=== PATIENT | male | born 1965 | race Caucasian/White ===

== ENCOUNTER 2017-11-26 00:18 | Emergency (ER) | payer SELFPAY ==
[2017-11-26] MEDS ORDERED: NS(*) 0.9% 1000 ML BAG 1,000 ML IV ONE (00:31)
--- NOTE | 2017-11-26 00:33 | ER Report ---
History and Physical Time Seen By MD: 00:23 HPI/ROS CHIEF COMPLAINT: chest pain HISTORY OF PRESENT ILLNESS: This is a 52 year old male. He is having chest pain. Started about 20 minutes ago. Left central chest area without radiation. On a trip to the [facility] from [place]. Trouble started for him when he started up into [place] from [place]. Does feel a little short of breath. No nausea or sweats. He has no history of chest pain or heart problems. No history of blood clots in legs or lungs. No headache or vision changes. No dizziness. Allergies: Coded Allergies: No Known Drug Allergies (Unverified , 11/26/17) Home Meds No Active Prescriptions or Reported Meds Reviewed Nurses Notes: Yes Constitutional Vital Sign - Last 24 Hours 11/26/17 11/26/17 11/26/17 11/26/17 00:27 00:30 00:51 01:00 Temp 98.6 Pulse 98 101 93 Resp 16 B/P (MAP) 188/106 173/104 (127) 148/89 (108) Pulse Ox 94 90 96 O2 Delivery Room Air Nasal Cannula O2 Flow Rate 2.0 2 11/26/17 11/26/17 11/26/17 11/26/17 01:30 02:00 02:30 03:00 Pulse 92 93 97 88 B/P (MAP) 147/84 (105) 146/92 (110) 141/113 (122) 150/100 (117) Pulse Ox 96 96 97 97 O2 Delivery Nasal Cannula Nasal Cannula Nasal Cannula Nasal Cannula O2 Flow Rate 2 2 2 2 11/26/17 11/26/17 03:30 03:45 Pulse 90 94 B/P (MAP) 154/94 (114) 147/94 (111) Pulse Ox 96 97 O2 Delivery Nasal Cannula Room Air O2 Flow Rate 2 2 Physical Exam General Appearance: The patient is alert. No acute distress. Non-toxic in appearance. Eyes: Pupils are equal, round. Reactive to light. No pallor, injection or icterus. Extraocular movements are intact. ENT: Mucous membranes are moist. Normal oral mucosa. Posterior oropharynx is normal. Neck: Supple and non tender. Respiratory: Lungs are clear to auscultation. Cardiovascular: Regular rate and rhythm. No murmurs, gallops or rubs. Normal capillary refill. No edema. Gastrointestinal: Abdomen is soft and non tender. Nondistended. Normal active bowel sounds. Neurological: Alert and oriented x3. Cranial nerves II through XII show no acute deficits on my exam. No focal neurologic deficits in the extremities. Skin: Warm and dry. No rashes. Musculoskeletal: Extremities are nontender. No tenderness in palpation of the cervical, thoracic and lumbar spine. DIFFERENTIAL DIAGNOSIS: After history and physical exam, differential diagnosis was considered for chest pain including but not limited to myocardial ischemia, pericarditis pulmonary embolus, chest wall pain, pleural inflammation and pulmonary infectious causes. Medical Decision Making Data Points Result Diagram: 11/26/17 0046 11/26/17 0046 Laboratory Hematology Test 11/26/17 00:46 11/26/17 03:13 Red Blood Count 5.74 M/uL (4.00-5.60) Mean Corpuscular Volume 88.2 fL (80.0-96.0) Mean Corpuscular Hemoglobin 30.7 pg (26.0-33.0) Mean Corpuscular Hemoglobin Concent 34.8 g/dL (32.0-36.0) Red Cell Distribution Width 13.7 % (11.5-14.5) Mean Platelet Volume 8.0 fL (7.2-11.1) Neutrophils (%) (Auto) 61.6 % (39.4-72.5) Lymphocytes (%) (Auto) 25.1 % (17.6-49.6) Monocytes (%) (Auto) 8.5 % (4.1-12.4) Eosinophils (%) (Auto) 4.3 % (0.4-6.7) Basophils (%) (Auto) 0.5 % (0.3-1.4) Nucleated RBC Relative Count (auto) 0.0 /100WBC Neutrophils # (Auto) 5.3 K/uL (2.0-7.4) Lymphocytes # (Auto) 2.2 K/uL (1.3-3.6) Monocytes # (Auto) 0.7 K/uL (0.3-1.0) Eosinophils # (Auto) 0.4 K/uL (0.0-0.5) Basophils # (Auto) 0.0 K/uL (0.0-0.1) Nucleated RBC Absolute Count (auto) 0.00 K/uL D-Dimer Quantitative (PE/DVT) 0.32 ug/ml (0-0.50) Sodium Level 140 mmol/L (137-145) Potassium Level 3.5 mmol/L (3.5-5.0) Chloride Level 101 mmol/L (98-107) Carbon Dioxide Level 27 mmol/L (22-30) Blood Urea Nitrogen 11 mg/dl (9-21) Creatinine 0.90 mg/dl (0.66-1.25) Glomerular Filtration Rate Calc > 60.0 Random Glucose 126 mg/dl (75-110) Calcium Level 9.2 mg/dl (8.4-10.2) Total Bilirubin 0.5 mg/dl (0.2-1.3) Aspartate Amino Transf (AST/SGOT) 43 U/L (0-35) Alanine Aminotransferase (ALT/SGPT) 68 U/L (0-56) Alkaline Phosphatase 92 U/L (0-126) B-Type Natriuretic Peptide 6 pg/ml (0-100) Total Protein 7.6 g/dl (6.3-8.2) Albumin 4.4 g/dl (3.5-5.0) Troponin I < 0.012 ng/ml Chemistry Test 11/26/17 00:46 11/26/17 03:13 White Blood Count 8.6 k/uL (4.5-11.0) Red Blood Count 5.74 M/uL (4.00-5.60) Hemoglobin 17.6 g/dL (14.0-18.0) Hematocrit 50.6 % (42.0-52.0) Mean Corpuscular Volume 88.2 fL (80.0-96.0) Mean Corpuscular Hemoglobin 30.7 pg (26.0-33.0) Mean Corpuscular Hemoglobin Concent 34.8 g/dL (32.0-36.0) Red Cell Distribution Width 13.7 % (11.5-14.5) Platelet Count 297 K/uL (150-450) Mean Platelet Volume 8.0 fL (7.2-11.1) Neutrophils (%) (Auto) 61.6 % (39.4-72.5) Lymphocytes (%) (Auto) 25.1 % (17.6-49.6) Monocytes (%) (Auto) 8.5 % (4.1-12.4) Eosinophils (%) (Auto) 4.3 % (0.4-6.7) Basophils (%) (Auto) 0.5 % (0.3-1.4) Nucleated RBC Relative Count (auto) 0.0 /100WBC Neutrophils # (Auto) 5.3 K/uL (2.0-7.4) Lymphocytes # (Auto) 2.2 K/uL (1.3-3.6) Monocytes # (Auto) 0.7 K/uL (0.3-1.0) Eosinophils # (Auto) 0.4 K/uL (0.0-0.5) Basophils # (Auto) 0.0 K/uL (0.0-0.1) Nucleated RBC Absolute Count (auto) 0.00 K/uL D-Dimer Quantitative (PE/DVT) 0.32 ug/ml (0-0.50) Glomerular Filtration Rate Calc > 60.0 Calcium Level 9.2 mg/dl (8.4-10.2) Total Bilirubin 0.5 mg/dl (0.2-1.3) Aspartate Amino Transf (AST/SGOT) 43 U/L (0-35) Alanine Aminotransferase (ALT/SGPT) 68 U/L (0-56) Alkaline Phosphatase 92 U/L (0-126) B-Type Natriuretic Peptide 6 pg/ml (0-100) Total Protein 7.6 g/dl (6.3-8.2) Albumin 4.4 g/dl (3.5-5.0) Troponin I < 0.012 ng/ml Coagulation Test 11/26/17 00:46 D-Dimer Quantitative (PE/DVT) 0.32 ug/ml EKG/Imaging EKG Interpretation 12 lead EKG: Rhythm: normal sinus rhythm, rate 99 [place]: normal QRS: normal ST segments: normal Imaging CHEST PA AND LAT HISTORY: Chest pain. COMPARISON: None. TECHNIQUE: PA and lateral views of the chest. FINDINGS: Pulmonary: Lungs are clear. There is no pneumothorax or pleural effusion. Cardiomediastinal: Cardiac and mediastinal silhouettes are within normal limits. Bones/soft tissues: There is mild concave deformity of the superior endplate of T7. The visible abdomen is normal. IMPRESSION: 1. No acute cardiopulmonary process. 2. Concave deformity of the superior endplate of T7 is of uncertain age. Please correlate with any tenderness in this location. Report Dictated By: Cookie San at 11/26/2017 1:36 AM ED Course/Re-evaluation Clinical Indication for ER IV: IV Access ED Course Initial troponin and EKG negative. Chest x-ray negative as well. Repeated labs again in 3 hours and troponin was still undetectable. This appears to be likely due to elevation and acute mountain sickness. Decision to Disposition Date: Nov 26, 2017 Decision to Disposition Time: 03:46 Depart Departure Latest Vital Signs Vital Signs Date Time Temp Pulse Resp B/P (MAP) Pulse Ox O2 Delivery O2 Flow Rate FiO2 11/26/17 03:45 94 147/94 (111) 97 Room Air 2 11/26/17 00:27 98.6 16 Impression: Primary Impression: Chest pain Additional Impression: High altitude sickness Condition: Improved Disposition: HOME OR SELF-CARE New Scripts No Active Prescriptions or Reported Meds Patient Instructions: Chest Pain (ED), Mountain Sickness (ED) Additional Instructions: The work-up tonight was negative, with normal labs, EKG and Chest x-ray. We feel that your symptoms tonight are due to the high elevation and thin air at this altitude. You should start feeling better as you descend toward sea level again. Please follow-up with your regular doctor upon returning home. Seek medical attention should symptoms worsen during your travels. Problem Qualifiers Primary Impression: Chest pain Chest pain type: unspecified Qualified Codes: R07.9 - Chest pain, unspecified Additional Impression: High altitude sickness Encounter type: initial encounter Qualified Codes: T70.29XA - Other effects of high altitude, initial encounter SHELIA DRAKE MD Nov 26, 2017 00:33
[2017-11-26] MEDS ORDERED: ASPIRIN 81 MG CHEW PO ONE (00:35)
[2017-11-26 00:57] LABS: PLATELET COUNT, AUTOMATED 297 K/uL (150-450)
--- NOTE | 2017-11-26 01:40 | EKG ---
FACILITY: [facility] - [place] PATIENT NAME: JACKY WILSON : [id number] MR: [id number] V: [id number] EXAM DATE: ORDERING PHYSICIAN: SHELIA DRAKE TECHNOLOGIST: BRET Test Reason : CHEST PAIN Blood Pressure : / mmHG Vent. Rate : 099 BPM Atrial Rate : 099 BPM P-R Int : 142 ms QRS Dur : 070 ms QT Int : 358 ms P-R-T Axes : 047 030 026 degrees QTc Int : 459 ms Normal sinus rhythm Normal ECG No previous ECGs available Confirmed by Rj Finch ([id number] on 11/26/2017 6:04:22 AM Referred By: Confirmed By:jR Santana
--- NOTE | 2017-11-26 01:42 | RADIOLOGY IMAGING REPORT ---
FACILITY: [facility] PATIENT NAME: Lee Mclaughlin : 1965 MR: [id number] V: [id number] EXAM DATE: ORDERING PHYSICIAN: SHELIA DRAKE TECHNOLOGIST: Location[place] [facility] [place] Patient: Lee Mclaughlin : 1965 Visit/Account:[id number] Date of Sevice: 11/26/2017 CHEST PA AND LAT HISTORY: Chest pain. COMPARISON: None. TECHNIQUE: PA and lateral views of the chest. FINDINGS: Pulmonary: Lungs are clear. There is no pneumothorax or pleural effusion. Cardiomediastinal: Cardiac and mediastinal silhouettes are within normal limits. Bones/soft tissues: There is mild concave deformity of the superior endplate of T7. The visible abdom en is normal. IMPRESSION: 1. No acute cardiopulmonary process. 2. Concave deformity of the superior endplate of T7 is of uncertain age. Please correlate with any te nderness in this location. Report Dictated By: Cookie San at 11/26/2017 1:36 AM Report E-Signed By: Cookie San at 11/26/2017 1:37 AM WSN:[id number]
[2017-11-26 03:45] VITALS: BP 147/94
== END 2017-11-26 04:10 | disposition home or self-care (01) ==
LOC: ER 00:25
DX: T70.29XA Other effects of high altitude, initial encounter (principal); R07.9 Chest pain, unspecified; R06.02 Shortness of breath
CPT/HCPCS: 36415; 71046; 83880; 84484; 85025; 85379; 93005; 99284; J7030; 82040; 82247; 82310; 82374; 82435; 82565; 82947; 84075; 84132; 84155; 84295; 84450; 84460; 84520